=== PATIENT | male | born 1990 | race Hispanic/Latino ===

== ENCOUNTER 2018-03-22 06:38 | Emergency (ER) | payer SELFPAY ==
[2018-03-22] MEDS ORDERED: KETOROLAC 30 MG/ML INJ ONE (07:19)
[2018-03-22] MEDS ORDERED: NA CHLORIDE 0.9% 1,000 ML ONE (07:19)
[2018-03-22 07:48] LABS: Absolute Lymphocytes (CBC) 1.9 K/uL (0.7-4.9); Absolute Monocytes 0.5 K/uL (0.1-1.3); Absolute Neutrophil 3.7 K/uL (1.8-8.0); Basophils % 0.5 % (0-1.3); Hematocrit 43.7 % (39.6-49.0); Lymphocytes % 28.9 % (15.3-44.8); MCH 29.1 pg (27.0-35.0); MCV 86.5 fL (80-100); MPV 8.7 fL (7.6-11.3); Monocytes % 8.2 % (3.3-12.3); RBC Red Blood Cell Count 5.06 M/uL (4.33-5.43)
--- NOTE | 2018-03-22 07:48 | RAD REPORT ---
EXAM DESCRIPTION: CT - Stone Protocol - 03/22/2018 7:11 am CLINICAL HISTORY: Abdominal pain. Lower abdominal pain. Left flank pain COMPARISON: None. TECHNIQUE: Computed axial tomography of the abdomen pelvis was obtained without oral or IV contrast. Lack of IV and oral contrast limits evaluation of solid organs, bowel, and vessels. Coronal reformat wu images were obtained and reviewed. All CT scans are performed using dose optimization technique as appropriate and may include automated exposure control or mA/KV adjustment according to patient size. FINDINGS: A renal calculus is not seen. Mild left hydronephrosis is present. The left ureter is mild ly dilated. A 1 millimeter calculus is present at the left ureteral vesicle junction. Right hydronephrosis is not noted. The right ureter is normal caliber. Within the right ureteral vesi logan junction is a 4 millimeter calculus. The liver, spleen, pancreas and adrenals appear grossly normal There is no evidence of diverticulitis. The appendix appears normal. A small right inguinal hernia contains fat IMPRESSION: 1 millimeter calculus at the left ureterovesical junction resulting in mild left hydrone phrosis 4 millimeter nonobstructing calculus at the right ureteral vesicle junction
[2018-03-22 07:57] LABS: Bicarbonate 25 mEq/L (21-31); Glucose Level 98 mg/dL (65-120); Lipase 14 U/L (22-51); Potassium 3.6 mEq/L (3.6-5.0); Sodium Level 138 mEq/L (135-145)
[2018-03-22 08:03] LABS: ALT/SGPT 21 IU/L (10-60); AST/SGOT 20 IU/L (10-42); Albumin 4.4 g/dL (3.2-5.5); Alkaline Phosphatase 68 IU/L (42-121); BUN Blood Urea Nitrogen 11 mg/dL (6-20); Bilirubin Direct < 0.1 mg/dL (0-0.2); Bilirubin Total 0.3 mg/dL (0.3-1.2); Protein, Total 7.1 g/dL (6.0-8.3)
[2018-03-22] MEDS ORDERED: TAMSULOSIN 0.4 MG SR CAP ONE (08:33)
[2018-03-22 09:28] LABS: Urine Bacteria NONE SEEN /HPF (NONE SEEN); Urine Culture Reflex Order NOT NEEDED
--- NOTE | 2018-03-22 09:39 | ER ---
Nurse's Notes [facility] Name: Mauro Lake Age: 27 yrs Sex: Male : 1990 Arrival Date: 03/22/2018 Time: 06:45 Bed 14 Private MD: Diagnosis: Hydronephrosis with renal and ureteral calculous obstruction Presentation: 03/22 06:52 Presenting complaint: Patient states: Pain started in left testicle and now is in left tl2 flank pain radiates to abdomen. Started this morning. Denies vomiting or fever. Transition of care: patient was not received from another setting of care. Onset of symptoms was March 22, 2018 at 06:00. Initial Sepsis Screen: Does the patient meet any 2 criteria? No. Patient's initial sepsis screen is negative. Does the patient have a suspected source of infection? No. Patient's initial sepsis screen is negative. Care prior to arrival: None. 06:52 Method Of Arrival: Ambulatory tl2 06:52 Acuity: SCOT 3 tl2 Triage Assessment: 06:55 General: Appears in no apparent distress. comfortable, Behavior is calm, cooperative, tl2 appropriate for age. Pain: Complains of pain in left flank Pain radiates to right lower quadrant. Neuro: Level of Consciousness is awake, alert, obeys commands, Oriented to person, place, time, situation. Cardiovascular: Denies chest pain. Respiratory: Airway is patent Respiratory effort is even, unlabored, Respiratory pattern is regular, symmetrical. GI: Abdomen is non-distended, Reports lower abdominal pain, Patient currently denies vomiting. : No signs and/or symptoms were reported regarding the genitourinary system. Derm: Skin is pink, warm \T\ dry. Historical: - Allergies: 06:55 No Known Allergies; tl2 - Home Meds: 06:55 omeprazole 40 mg Oral cpDR 1 cap once daily [Active]; tl2 - PMHx: 06:55 GERD; tl2 - Immunization history:: Adult Immunizations up to date. - Social history:: Smoking status: Patient uses tobacco products, smokes one-half pack cigarettes per day. Screenin:01 Abuse screen: Denies threats or abuse. Nutritional screening: No deficits noted. tl2 Tuberculosis screening: No symptoms or risk factors identified. Fall Risk None identified. Assessment: 07:01 General: see triage assessment. tl2 07:50 Reassessment: Patient appears in no apparent distress at this time. Patient and/or ph family updated on plan of care and expected duration. Pain level reassessed. Patient is alert, oriented x 3, equal unlabored respirations, skin warm/dry/pink. Pt resting quietly, awaiting CT and lab results, VSS, will continue to monitor. 09:06 Reassessment: Patient appears in no apparent distress at this time. Patient and/or ph family updated on plan of care and expected duration. Pain level reassessed. Patient is alert, oriented x 3, equal unlabored respirations, skin warm/dry/pink. Pt ambulated to restroom, gait steady, urine sample obtained, pt reports that pain has decreased after pain medication, awaiting lab results, VSS. Vital Signs: 06:55 BP 146 / 95; Pulse 97; Resp 18; Temp 98.6(O); Pulse Ox 98% on R/A; Weight 117.93 kg; tl2 Height 5 ft. 11 in. (180.34 cm); Pain 5/10; 07:51 BP 138 / 87; Pulse 91; Resp 18; Pulse Ox 99% on R/A; ph 09:07 BP 136 / 82; Pulse 84; Resp 18; Pulse Ox 99% on R/A; Pain 2/10; ph 10:00 BP 132 / 84; Pulse 86; Resp 18; Temp 97.8; Pulse Ox 99% on R/A; ph 06:55 Body Mass Index 36.26 (117.93 kg, 180.34 cm) tl2 ED Course: 06:45 Patient arrived in ED. am2 06:48 Olayinka Mccauley NP is PHCP. pm1 06:48 Jaden Thomas MD is Attending Physician. pm1 06:54 Triage completed. tl2 06:55 Arm band placed on right wrist. tl2 07:01 Patient has correct armband on for positive identification. Bed in low position. tl2 07:01 No provider procedures requiring assistance completed. tl2 07:09 CT completed. Patient tolerated procedure well. Patient moved to CT via wheelchair. jg1 Patient moved back from CT. 07:11 CT Stone Protocol In Process Unspecified. EDMS 07:16 Lazara Go RN is Primary Nurse. ph 07:30 Inserted saline lock: 22 gauge in right antecubital area, using aseptic technique. ph Blood collected. 09:38 Santa Galvan MD is Referral Physician. pm1 10:00 IV discontinued, bleeding controlled, No redness/swelling at site. Pressure dressing ph applied. Administered Medications: 07:30 Drug: NS 0.9% 1000 ml Route: IV; Rate: 1000 ml; Site: right antecubital; ph 09:00 Follow up: Response: No adverse reaction; IV Status: Completed infusion ph 07:30 Drug: TORadol 30 mg Route: IVP; Site: right antecubital; ph 08:30 Follow up: Response: No adverse reaction; Pain is decreased ph 08:45 Drug: Flomax 0.4 mg Route: PO; ph 10:00 Follow up: Response: No adverse reaction ph Outcome: 09:38 Discharge ordered by MD. pm1 10:02 Patient left the ED. iw 10:02 Discharged to home ambulatory. ph 10:02 Condition: good 10:02 Discharge instructions given to patient, Instructed on discharge instructions, follow up and referral plans. medication usage, Demonstrated understanding of instructions, follow-up care, medications, Prescriptions given X 3. Signatures: Dispatcher [employer] Aleah Suarez jg1 Alesia Nelson RN RN Lazara Go RN RN ph Olayinka Mccauley NP [employer]INEER pm1 Kailyn Clinton RN RN 2 Siria Rae 2
--- NOTE | 2018-03-22 09:39 | EDPHYS ---
Physician Documentation [facility] Name: Mauro Lake Age: 27 yrs Sex: Male : 1990 Arrival Date: 03/22/2018 Time: 06:45 Bed 14 Private MD: ED Physician Jaden Thomas HPI: 03/22 07:03 This 27 yrs old Male presents to ER via Ambulatory with complaints of Left pm1 sided Flank Pain. 07:03 Onset: The symptoms/episode began/occurred this morning. Associated signs and symptoms: pm1 Pertinent negatives: nausea, vomiting, and diarrhea, shortness of breath. Modifying factors: The symptoms are alleviated by nothing, the symptoms are aggravated by nothing. Severity of pain: in the emergency department the pain has improved. The patient has not experienced similar symptoms in the past. The patient has not recently seen a physician. Patient presents to the ER with left sided testicular pain and left sided abdominal pain. No testicular swelling or penile discharge present. Left sided testicular pain has resolved. Historical: - Allergies: 06:55 No Known Allergies; tl2 - Home Meds: 06:55 omeprazole 40 mg Oral cpDR 1 cap once daily [Active]; tl2 - PMHx: 06:55 GERD; tl2 - Immunization history:: Adult Immunizations up to date. - Social history:: Smoking status: Patient uses tobacco products, smokes one-half pack cigarettes per day. ROS: 07:08 Constitutional: Negative for fever, chills, and weight loss, Eyes: Negative for injury, pm1 pain, redness, and discharge, ENT: Negative for injury, pain, and discharge, Neck: Negative for injury, pain, and swelling, Cardiovascular: Negative for chest pain, palpitations, and edema, Respiratory: Negative for shortness of breath, cough, wheezing, and pleuritic chest pain. 07:08 : Negative for injury, bleeding, discharge, and swelling, MS/Extremity: Negative for injury and deformity, Skin: Negative for injury, rash, and discoloration, Neuro: Negative for headache, weakness, numbness, tingling, and seizure. 07:08 Abdomen/GI: Positive for abdominal pain, of the left upper quadrant. 07:08 Back: Positive for flank pain, on the left. Exam: 07:08 Constitutional: This is a well developed, well nourished patient who is awake, alert, pm1 and in no acute distress. Head/Face: Normocephalic, atraumatic. Eyes: Pupils equal round and reactive to light, extra-ocular motions intact. Lids and lashes normal. Conjunctiva and sclera are non-icteric and not injected. Cornea within normal limits. Periorbital areas with no swelling, redness, or edema. Chest/axilla: Normal chest wall appearance and motion. Nontender with no deformity. No lesions are appreciated. Cardiovascular: Regular rate and rhythm with a normal S1 and S2. No gallops, murmurs, or rubs. Normal PMI, no JVD. No pulse deficits. Respiratory: Lungs have equal breath sounds bilaterally, clear to auscultation and percussion. No rales, rhonchi or wheezes noted. No increased work of breathing, no retractions or nasal flaring. Abdomen/GI: Soft, non-tender, with normal bowel sounds. No distension or tympany. No guarding or rebound. No evidence of tenderness throughout. Back: No spinal tenderness. No costovertebral tenderness. Full range of motion. Skin: Warm, dry with normal turgor. Normal color with no rashes, no lesions, and no evidence of cellulitis. MS/ Extremity: Pulses equal, no cyanosis. Neurovascular intact. Full, normal range of motion. 07:08 Neuro: Orientation: is normal, Mentation: is normal, Motor: moves all fours, Gait: is steady, at a normal pace, without difficulty. Vital Signs: 06:55 BP 146 / 95; Pulse 97; Resp 18; Temp 98.6(O); Pulse Ox 98% on R/A; Weight 117.93 kg; tl2 Height 5 ft. 11 in. (180.34 cm); Pain 5/10; 07:51 BP 138 / 87; Pulse 91; Resp 18; Pulse Ox 99% on R/A; ph 09:07 BP 136 / 82; Pulse 84; Resp 18; Pulse Ox 99% on R/A; Pain 2/10; ph 10:00 BP 132 / 84; Pulse 86; Resp 18; Temp 97.8; Pulse Ox 99% on R/A; ph 06:55 Body Mass Index 36.26 (117.93 kg, 180.34 cm) tl2 MDM: 06:48 Patient medically screened. pm1 09:38 Data reviewed: vital signs. Data interpreted: Pulse oximetry: on room air is 99 %. pm1 Interpretation: normal. Counseling: I had a detailed discussion with the patient and/or guardian regarding: the historical points, exam findings, and any diagnostic results supporting the discharge/admit diagnosis, lab results, radiology results, the need for outpatient follow up, to return to the emergency department if symptoms worsen or persist or if there are any questions or concerns that arise at home. 03/22 06:53 Order name: Basic Metabolic Panel; Complete Time: 08:16 pm1 03/22 06:53 Order name: CBC with Diff; Complete Time: 07:52 pm1 03/22 06:53 Order name: Hepatic Function; Complete Time: 08:16 pm1 03/22 06:53 Order name: Lipase; Complete Time: 08:16 pm1 03/22 06:53 Order name: Urine Microscopic Only; Complete Time: 09:38 pm1 03/22 09:03 Order name: Urine Dipstick--Ancillary (enter results) 03/22 06:53 Order name: IV Saline Lock; Complete Time: 07:43 pm1 03/22 06:53 Order name: Labs collected and sent; Complete Time: 07:43 pm1 03/22 06:53 Order name: CT Stone Protocol; Complete Time: 07:52 pm1 Administered Medications: 07:30 Drug: NS 0.9% 1000 ml Route: IV; Rate: 1000 ml; Site: right antecubital; ph 09:00 Follow up: Response: No adverse reaction; IV Status: Completed infusion ph 07:30 Drug: TORadol 30 mg Route: IVP; Site: right antecubital; ph 08:30 Follow up: Response: No adverse reaction; Pain is decreased ph 08:45 Drug: Flomax 0.4 mg Route: PO; ph 10:00 Follow up: Response: No adverse reaction ph Disposition: 19:26 Co-signature as Attending Physician, Jaden Thomas MD. Disposition: 03/22/18 09:38 Discharged to Home. Impression: Hydronephrosis with renal and ureteral calculous obstruction. - Condition is Stable. - Discharge Instructions: Kidney Stones, Dietary Guidelines to Help Prevent Kidney Stones. - Prescriptions for Tylenol- Codeine #3 300-30 mg Oral Tablet - take 2 tablets by ORAL route every 6 hours As needed; 20 tablet. Zofran 4 mg Oral Tablet - take 1 tablet by ORAL route every 12 hours As needed; 20 tablet. Flomax 0.4 mg Oral Capsule, Sust. Release 24 hr - take 1 capsule by ORAL route once daily 1/2 hour following the same meal each day; 10 capsule. - Work release form, Medication Reconciliation Form, Thank You Letter, Antibiotic Education, Prescription Opioid Use form. - Follow up: Emergency Department; When: As needed; Reason: Worsening of condition. Follow up: Santa Galvan; When: 2 - 3 days; Reason: Recheck today's complaints, Continuance of care, Re-evaluation by your physician. - Problem is new. - Symptoms have improved. Signatures: Dispatcher [employer] EDAlesia Post RN RN iw Lazara Go RN RN ph Olayinka Mccauley, [employer]IC[employer] pm1 Kailyn Clinton RN RN tl2 Jaden Thomas MD MD Corrections: (The following items were deleted from the chart) 10:02 09:38 03/22/2018 09:38 Discharged to Home. Impression: Hydronephrosis with renal and iw ureteral calculous obstruction. Condition is Stable. Discharge Instructions: Kidney Stones, Dietary Guidelines to Help Prevent Kidney Stones. Prescriptions for Tylenol-Codeine #3 300-30 mg Oral Tablet - take 2 tablets by ORAL route every 6 hours As needed; 20 tablet, Zofran 4 mg Oral Tablet - take 1 tablet by ORAL route every 12 hours As needed; 20 tablet, Flomax 0.4 mg Oral Capsule, Sust. Release 24 hr - take 1 capsule by ORAL route once daily 1/2 hour following the same meal each day; 10 capsule. and Forms are Medication Reconciliation Form, Thank You Letter, Antibiotic Education, Prescription Opioid Use. Follow up: Emergency Department; When: As needed; Reason: Worsening of condition. Follow up: Santa Galvan; When: 2 - 3 days; Reason: Recheck today's complaints, Continuance of care, Re-evaluation by your physician. Problem is new. Symptoms have improved. pm1
[2018-03-22 11:37] LABS: Urine Blood 1+ (NEG); Urine Glucose NEGATIVE (NEG); Urine Protein NEGATIVE (NEG)
== END 2018-03-22 10:02 | disposition home or self-care (01) ==
LOC: ER 06:38
DX: N13.2 Hydronephrosis with renal and ureteral calculous obstruction (principal); K21.9 Gastro-esophageal reflux disease without esophagitis; F17.210 Nicotine dependence, cigarettes, uncomplicated
CPT/HCPCS: 36415; 74176; 76377; 80048; 80076; 81003; 81015; 83690; 85025; 96361; 96374; 99284; J7030